=== PATIENT | male | born 1955 | race Caucasian/White ===

== ENCOUNTER 2017-05-08 13:25 | Inpatient (IN) | payer OTHER ==
[~2017-05-08] VITALS: Ht 188 cm; Wt 165.4 kg
[~2017-05-08 13:25] MED LIST: AMOXICILLIN875 MG PO; BENADRYL25 MG PO; HYCODAN SYRUP480 ML PO; IRON325 M1 PO; METAMUCIL660 GM PO; OXYCODONE HCL5 MG PO; PREDNISONE50 MG PO; SENNA PLUS TAB1 EACH PO; VENTOLIN HFA18 GM IH; XARELTO10 MG PO
[2017-05-08 14:29] VITALS: BP 170/99
[2017-05-08] MEDS ORDERED: METAMUCIL PACKE1 PKT PO (15:48)
[2017-05-08 16:08] VITALS: BP 151/83
[2017-05-08 16:35] LABS: METH RESISTANT S AUREUS PCR NEGATIVE (NEGATIVE)
[2017-05-08 16:43] LABS: PROBE CHECK PASS; SPECIMEN PROCESSING CONTROL PASS
[2017-05-08 17:06] LABS: ADD MIUA? NO; BILIRUBIN NEGATIVE; BLOOD NEGATIVE; COLOR YELLOW ((YELLOW)); GLUCOSE (STRIP) NEGATIVE; KETONES NEGATIVE; LEUKOCYTES NEGATIVE; NITRITE NEGATIVE; PROTEIN (STRIP) NEGATIVE; SPECIFIC GRAVITY 1.012 (1.000-1.030); UCUL ADDED? NO; UROBILINOGEN 0.2 MG/DL (0.2-1.0)
[2017-05-08 20:30] VITALS: BP 141/81
[2017-05-08 23:37] VITALS: BP 178/84
[2017-05-09 04:39] VITALS: BP 127/76
[2017-05-09 06:36] LABS: BASOPHIL COUNT 0.1 K/uL (0-0.1); EOSINOPHIL (%) 1.3 % (0-5); EOSINOPHIL COUNT 0.1 K/uL (0-0.3); HEMATOCRIT 37.8 % (38.0-50.0); IMMATURE GRANULOCYTE (%) 0.4 % (0.0-0.7); INSTRUMENT ABS NEUTROPHIL CT 6.8 K/uL; LYMPHOCYTE COUNT 1.9 K/uL (1.0-2.8); MCH 30.8 PG (29.0-34.0); MCHC 34.7 G/DL (30.0-36.0); MCV 88.9 FL (86-99); MEAN PLAT.VOLUME 10.4 uM^3 (9.0-12.4); MONOCYTE (%) 8.4 % (3-12); MONOCYTE COUNT 0.8 K/uL (0-0.8); NEUTROPHIL (%) 69.7 % (45-76); NEUTROPHIL COUNT 6.8 K/uL (1.8-6.4); PLATELET COUNT 255 K/uL (156-360); RBC DIS.WIDTH-CV 12.1 % (11.8-14.6); RBC DIS.WIDTH-SD 38.8 % (39-53); RED BLOOD COUNT 4.25 M/uL (4.00-5.50); WHITE BLOOD COUNT 9.7 K/uL (4.1-10.2)
[2017-05-09 08:21] VITALS: BP 136/78
[2017-05-09 12:31] VITALS: BP 174/78
[2017-05-09 16:30] VITALS: BP 145/72
[2017-05-09 20:09] VITALS: BP 119/78
[2017-05-10] VITALS: BP 125/70
[2017-05-10 03:48] VITALS: BP 129/69
[2017-05-10 07:44] VITALS: BP 135/79
[2017-05-10 10:11] LABS: HEMATOCRIT 34.5 % (38.0-50.0); MCV 88.7 FL (86-99)
[2017-05-10 10:35] LABS: ANION GAP 9 MEQ/L (2-14); CHLORIDE 102 MEQ/L (99-109); GFR ESTIMATE (CALCULATED) > 59 mL/min/; GLUCOSE 156 mg/dL (70-99); POTASSIUM 4.2 MEQ/L (3.7-5.4); SAMPLE HEMOLYSIS CHECK 0; SAMPLE ICTERIC CHECK 0; SAMPLE LIPEMIA CHECK 0; SODIUM 136 MEQ/L (136-147); UREA NITROGEN (BUN) 13 mg/dL (9-23)
[2017-05-10 11:22] VITALS: BP 118/64
[2017-05-10 20:41] VITALS: BP 157/76
[2017-05-10 23:56] VITALS: BP 128/62
[2017-05-11 06:37] LABS: HEMATOCRIT 35.2 % (38.0-50.0); MCV 89.1 FL (86-99)
[2017-05-11 08:01] VITALS: BP 164/90
[2017-05-11 15:37] VITALS: BP 158/92
[2017-05-11 19:25] VITALS: BP 122/61
[2017-05-11 23:25] VITALS: BP 131/84
[2017-05-12 08:14] VITALS: BP 149/82
[2017-05-12] MEDS ORDERED: OXYCODONE HCL5 MG PO (09:09)
[2017-05-12] MEDS ORDERED: ELIQUIS2.5 MG PO (09:09)
== END 2017-05-12 14:02 | disposition home or self-care (01) | DRG 464 ==
LOC: 3EAST 13:25 → ENPENDDIS 05-12 → 3EAST 05-12 14:02
PROVIDERS: Internal Medicine; Orthopaedic Surgery; Physician Assistant Surgical
DX: T84.53XA Infection and inflammatory reaction due to internal right knee prosthesis, initial encounter (principal); Y83.1 Surgical operation with implant of artificial internal device as the cause of abnormal reaction of the patient, or of later complication, without mention of misadventure at the time of the procedure; B95.7 Other staphylococcus as the cause of diseases classified elsewhere; G47.30 Sleep apnea, unspecified; I10 Essential (primary) hypertension; E66.9 Obesity, unspecified; Z96.651 Presence of right artificial knee joint; Z68.42 Body mass index [BMI] 45.0-49.9, adult; Z87.891 Personal history of nicotine dependence
CPT/HCPCS: 36415; 76937; 80048; 80053; 81003; 84550; 84560 90; 85014; 85018; 85025; 85651; 85730; 86140; 86900; 86901; 87070; 87075; 87077; 87186; 87205; 87641; 89051; 93005; C1713; C1769; J0131; J0330; J1100; J1170; J2250; J2405; J2710; J3010; J3370; J7050; J7120; S0020; S0032

== ENCOUNTER → 2017-06-06 | Outpatient (CLI) | payer OTHER ==
[~2017-06-06] MED LIST changes: +ELIQUIS2.5 MG PO; +METAMUCIL PACKE1 PKT PO
== END | disposition home or self-care (01) ==
LOC: PICC 13:08
DX: T84.53XD Infection and inflammatory reaction due to internal right knee prosthesis, subsequent encounter (principal); R50.9 Fever, unspecified; Y79.2 Prosthetic and other implants, materials and accessory orthopedic devices associated with adverse incidents
CPT/HCPCS: 76937

== ENCOUNTER 2017-07-31 22:18 | Inpatient (IN) | payer OTHER ==
[~2017-07-31] VITALS: Ht 188 cm; Wt 169.3 kg
[~2017-07-31 22:18] MED LIST changes: +CYANOCOBALAM1000 MCG PO; +METAMUCIL FIBE3.4 GM PO
[2017-08-01 09:09] VITALS: BP 138/78
[2017-08-01 17:58] LABS: HEMATOCRIT 34.4 % (38.0-50.0); MCV 88.2 FL (86-99)
[2017-08-01 18:18] VITALS: BP 125/61
[2017-08-01 18:28] LABS: POINT-OF-CARE METER ID UU14208753
[2017-08-01 19:39] VITALS: BP 121/54
[2017-08-01 21:24] LABS: POINT-OF-CARE METER ID UU14208753
[2017-08-01 23:34] VITALS: BP 147/70
[2017-08-02 04:25] VITALS: BP 114/63
[2017-08-02 06:38] LABS: POINT-OF-CARE METER ID UU14208753
[2017-08-02 07:02] LABS: ANION GAP 8 MEQ/L (2-14); CHLORIDE 101 MEQ/L (99-109); GFR ESTIMATE (CALCULATED) > 59 mL/min/; GLUCOSE 135 mg/dL (70-99); POTASSIUM 4.5 MEQ/L (3.7-5.4); SAMPLE HEMOLYSIS CHECK 0; SAMPLE ICTERIC CHECK 0; SAMPLE LIPEMIA CHECK 0; SODIUM 136 MEQ/L (136-147); UREA NITROGEN (BUN) 14 mg/dL (9-23)
[2017-08-02 07:40] VITALS: BP 129/67
[2017-08-02 11:06] VITALS: BP 120/65
[2017-08-02 11:11] LABS: POINT-OF-CARE METER ID UU14117124
[2017-08-02 15:24] VITALS: BP 120/64
[2017-08-02 16:18] LABS: POINT-OF-CARE METER ID UU14208753
[2017-08-02 21:28] LABS: POINT-OF-CARE METER ID UU14208753
[2017-08-02 23:50] VITALS: BP 131/71
[2017-08-03 06:37] LABS: POINT-OF-CARE METER ID UU14117124
[2017-08-03 07:29] LABS: HEMATOCRIT 32.2 % (38.0-50.0); MCHC 34.2 G/DL (30.0-36.0); MCV 87.7 FL (86-99); PLATELET COUNT 257 K/uL (156-360); RBC DIS.WIDTH-CV 12.4 % (11.8-14.6); RBC DIS.WIDTH-SD 40.3 % (39-53); RED BLOOD COUNT 3.67 M/uL (4.00-5.50); WHITE BLOOD COUNT 11.8 K/uL (4.1-10.2)
[2017-08-03] MEDS ORDERED: ELIQUIS2.5 MG PO (08:42)
[2017-08-03] MEDS ORDERED: OXYCODONE HCL5 MG PO (08:42)
[2017-08-03 12:05] LABS: POINT-OF-CARE METER ID UU14208753
== END 2017-08-03 17:50 | disposition home or self-care (01) | DRG 467 ==
LOC: ENRESERV 22:18 → 2SOUTH 08-01 08:21 → ENRESERV 08-01 15:52 → 2SOUTH 08-01 16:18 → 3EAST 08-01 17:21
PROVIDERS: Orthopaedic Surgery
PROC: 0SRC0J9 Replacement of Right Knee Joint with Synthetic Substitute, Cemented, Open Approach (ICD-10-PCS; principal; 2017-08-01)
PROC: 0SPC08Z Removal of Spacer from Right Knee Joint, Open Approach (ICD-10-PCS; principal; 2017-08-01)
DX: M21.861 Other specified acquired deformities of right lower leg (principal); G47.30 Sleep apnea, unspecified; E66.9 Obesity, unspecified; Z68.42 Body mass index [BMI] 45.0-49.9, adult; Z87.891 Personal history of nicotine dependence
CPT/HCPCS: 80048; 82948; 85014; 85018; 85027; 87070; 87075; 87205; 88304; 88331; 93005; 94660; 97530 GP; C1713; C1776; J0131; J0330; J0690; J1170; J1885; J2250; J2405; J2765; J3010; J3370; J7050; J7120; S0020